=== PATIENT | male | born 1980 | race African-American/Black ===

== ENCOUNTER 2017-07-30 08:16 | Emergency (ER) | payer OTHER | END 2017-07-30 09:11 | disposition home or self-care (01) | LOC: ERS 08:16 | DX: M54.5 Low back pain (principal) | CPT/HCPCS: 99283 ==

== ENCOUNTER 2018-11-16 13:53 | Emergency (ER) | payer OTHER ==
[2018-11-16] MEDS ORDERED: Ketorolac Tromethamine 30 MG/ML VIAL ONE (15:30)
== END 2018-11-16 16:26 | disposition home or self-care (01) ==
LOC: ERS 13:53
DX: M54.5 Low back pain (principal); W18.30XA Fall on same level, unspecified, initial encounter; Z87.891 Personal history of nicotine dependence
CPT/HCPCS: 96372; J1885

== ENCOUNTER 2018-12-05 15:54 | Emergency (ER) | payer OTHER | END 2018-12-05 17:19 | disposition home or self-care (01) | LOC: ERS 15:54 | DX: K08.89 Other specified disorders of teeth and supporting structures (principal) | CPT/HCPCS: 99282 ==

== ENCOUNTER 2019-02-03 16:04 | Emergency (ER) | payer OTHER ==
[2019-02-03] MEDS ORDERED: HYDROcodone/Acetaminophen 5/325 mg Tablet ONE (16:31)
== END 2019-02-03 16:25 | disposition home or self-care (01) ==
LOC: SCSER 16:04
DX: K05.219 Aggressive periodontitis, localized, unspecified severity (principal)
CPT/HCPCS: 99282

== ENCOUNTER 2019-03-29 12:54 | Emergency (ER) | payer OTHER | END 2019-03-29 14:59 | disposition home or self-care (01) | LOC: ERS 12:54 | DX: H66.93 Otitis media, unspecified, bilateral (principal) | CPT/HCPCS: 99282 ==

== ENCOUNTER 2020-01-12 13:40 | Emergency (ER) | payer OTHER | END 2020-01-12 14:06 | disposition home or self-care (01) | LOC: ERS 13:40 | DX: K08.89 Other specified disorders of teeth and supporting structures (principal) | CPT/HCPCS: 99282 ==

== ENCOUNTER 2020-10-10 09:15 | Emergency (ER) | payer OTHER | END 2020-10-10 10:50 | disposition home or self-care (01) | LOC: ERS 09:15 | DX: L03.313 Cellulitis of chest wall (principal); E11.9 Type 2 diabetes mellitus without complications; I10 Essential (primary) hypertension; Z79.899 Other long term (current) drug therapy; Z79.84 Long term (current) use of oral hypoglycemic drugs | CPT/HCPCS: 99283 ==

== ENCOUNTER 2021-06-24 15:14 | Emergency (ER) | payer OTHER, SELFPAY ==
[2021-06-24] MEDS ORDERED: Ibuprofen 200 MG TAB ONE (16:23)
== END 2021-06-24 16:38 | disposition home or self-care (01) ==
LOC: ERS 15:14
DX: K08.89 Other specified disorders of teeth and supporting structures (principal); E11.9 Type 2 diabetes mellitus without complications; I10 Essential (primary) hypertension; F17.210 Nicotine dependence, cigarettes, uncomplicated; Z79.899 Other long term (current) drug therapy
CPT/HCPCS: 99282

== ENCOUNTER 2021-12-14 14:15 | Emergency (ER) | payer OTHER, SELFPAY | END 2021-12-14 16:04 | disposition home or self-care (01) | LOC: ERS 14:15 | DX: B86 Scabies (principal) | CPT/HCPCS: 99282 ==

== ENCOUNTER 2023-08-08 08:47 | Emergency (ER) | payer OTHER ==
[2023-08-08 09:25] LABS: #Basophils Less than 0.03 10x3/uL (0.0-0.2); %Basophils 0.3 % (0.0-1.0); %Eosinophils 1.3 % (0.0-10.0); %Monocytes 11.8 % (0.0-10.0); %Neutrophils 52.4 % (42.0-75.0); Hematocrit 45.4 % (42.0-52.0); Hemoglobin 15.4 g/dL (14.0-18.0); Mean Corpuscular HGB CONC 33.9 g/dL (32.0-36.0); Mean Corpuscular Hemoglobin 31.2 pg (27.0-31.0); Mean Corpuscular Volume 91.9 fL (78.0-98.0); Mean Platelet Volume 10.4 fL (7.4-10.4); Platelet Count 231 10x3/uL (130-400); Red Blood Cell (RBC) Count 4.94 mill/uL (4.70-6.10)
[2023-08-08 09:34] LABS: ALT (SGPT) 26 U/L (8-55); AST (SGOT) 18 U/L (5-34); Albumin 4.5 g/dL (3.5-5.0); Alkaline Phosphatase 79 U/L (40-110); Anion Gap 13 mmol/L (10-20); BUN (Urea Nitrogen) 17 mg/dL (8.9-20.6); Bilirubin, Total 0.4 mg/dL (0.2-1.2); Calc. Creatinine Clearance 0 mL/min (70-130); Carbon Dioxide 28 mmol/L (22-29); Chloride 100 mmol/L (98-107); Estimated GFR 74; Glucose 185 mg/dL (70-105); Potassium 4.3 mmol/L (3.5-5.1); Protein, Total 7.5 g/dL (6.0-8.3); Sodium 137 mmol/L (136-145)
[2023-08-08 10:09] LABS: Troponin I Less than 0.010 ng/mL (< 0.028)
[2023-08-08] MEDS ORDERED: Ibuprofen 200 MG TAB ONE (10:33)
== END 2023-08-08 12:00 | disposition home or self-care (01) ==
LOC: ERS 08:47
DX: R42 Dizziness and giddiness (principal); H70.93 Unspecified mastoiditis, bilateral; E11.9 Type 2 diabetes mellitus without complications; I10 Essential (primary) hypertension; E78.5 Hyperlipidemia, unspecified; F17.210 Nicotine dependence, cigarettes, uncomplicated; Z79.899 Other long term (current) drug therapy; Z79.84 Long term (current) use of oral hypoglycemic drugs
CPT/HCPCS: 36415; 36416; 70450; 80053; 84484; 85025; 93005